=== PATIENT | male | born 1950 | race Caucasian/White ===

== ENCOUNTER 2024-10-24 08:29 | Emergency (ER) | payer MEDICARE, SELFPAY ==
[2024-10-24 08:33] VITALS: BMI 24.9
--- NOTE | 2024-10-24 08:33 | CT_ITS ---
EXAM: CT Head Without Intravenous Contrast CLINICAL INDICATION: NEURO DEFICIT, ACUTE, STROKE SUSPECTED TECHNIQUE: Axial computed tomography images of the head/brain without intravenous contrast. This CT exam was performed using one or more of the following dose reduction techniques: automated exposure control, adjustment of the mA and/or kV according to patient size, and/or use of iterative reconstruction technique. COMPARISON: No relevant prior studies available. FINDINGS: BRAIN AND EXTRA-AXIAL SPACES: Subtle hypodense lesion of the left basal ganglia could represent infarction of indeterminate age or prominent perivascular space. Further evaluation with MRI is recommended. The cerebral and cerebellar sulci are prominent consistent with brain atrophy. Areas of decreased attenuation in the deep cerebral white matter are consistent with small vessel ischemic/degenerative changes. No acute intracranial hemorrhage, midline shift or mass effect. If symptoms persist, further evaluation with MRI is recommended. BONES/JOINTS: Unremarkable. No acute fracture. SOFT TISSUES: Unremarkable. SINUSES: Unremarkable as visualized. No acute sinusitis. MASTOID AIR CELLS: Unremarkable as visualized. No mastoid effusion. CT/STROKE Brain/Head without Cont IMPRESSION: 1. Subtle hypodense lesion of the left basal ganglia could represent infarctio n of indeterminate age or prominent perivascular space. Further evaluation with MRI is recommended. 2. Generalized brain atrophy. 3. Small vessel ischemic/degenerative changes. 4. No acute intracranial hemorrhage, midline shift or mass effect. If symptoms persist, further evaluation with MRI is recommended. Reading Location: [facility]
--- NOTE | 2024-10-24 08:33 | CT_ITS ---
PROCEDURE: STROKE CTA HEAD AND NECK W/CON 10/24/2024 REASON FOR EXAM: NEURO DEFICIT, ACUTE, STROKE SUSPECTED TECHNIQUE: STROKE CTA HEAD AND NECK W/CON Multiplanar Sagittal and Coronal images were obtained. CONTRAST: Not reported One or more dose reduction techniques were used (e.g., Automated exposure control, adjustment of the mA and/or kV according to patient size, use of iterative reconstruction technique). RADIATION DOSE SUMMARY: DLP: 802 mGycm COMPARISON: None FINDINGS: Aortic Arch: Patent Brachiocephalic and Subclavians: Patent RIGHT Carotid: Right CCA: Patent, heavily calcified plaque is noted. Right ICA: Patent Maximum stenosis (NASCET): 0 % Right ECA: Patent LEFT Carotid: Left CCA: Patent, heavily calcified plaque is noted Left ICA: Patent Maximum stenosis (NASCET): 0 % Left ECA: Patent Vertebrals: Patent RIGHT Vertebral: Patent LEFT Vertebral: Patent, dominant Anatomy: Calcified plaque is noted Aneurysm or avm: None Anterior cerebral arteries: Patent Middle cerebral arteries: Patent Basilar artery: Patent Posterior cerebral arteries: Patent Other major branches of the posterior circulation: Patent Major venous structures: Patent Other findings: Neck: Unremarkable lungs: There is a 1.1 x 1.1 cm enlarged right paratracheal node, image 35/601. Emphysema is noted at the apices with scar bones: There is no acute bony abnormality. CT/STROKE CTA Head AND Neck W/Con IMPRESSION: There is a 1.1 x 1.1 cm enlarged right paratracheal node, image 35/601. Emphyse ma is noted at the apices with scar. Chest CT correlation is recommended No significant stenosis or occlusion is identified in the carotid system in the neck or head. [facility]
--- NOTE | 2024-10-24 08:33 | ED.VIS.STROK ---
HPI History of Present Illness Chief Complaint: Stroke Alert Detail of Chief Complaint: According to squad patient was flaccid on the left side his speech was much Informant: patient and EMS Onset/Context/Timing Onset: Today (08) Context: Onset with activity and Sudden Onset Timing: Continuous Quality and Location: Positive for Left Facial Droop, Left Arm Weakness, Left Leg Weakness, Slurred Speech and Difficulty with Ambulation Current Severity: Mild Maximum Severity: Severe Worsened by: Probable stroke Relieved by: Not applicable Associated Symptoms Associated Symptoms: Negative for Headache, Nausea or Vomiting Narrative Narrative: Patient is a 74-year-old male with history of atrial fibrillation on Eliquis. saw him fall. He had a flaccid left side significantly slurred speech and facial droop. He denies headache. Denies visual disturbance. He denies cardiac or respiratory symptoms. He denies nausea or vomiting. There are no records available for review. Prior similar symptoms: No Recent Illness/Hospitalization: No [facility] Medical History (Updated 10/24/24 @ 09:[address] Juan Quintanilla MD) Atrial fibrillation Social History (Updated 10/24/24 @ 08:[address] Juan Quintanilla MD) household members: spouse housing: house Smoking Status: Former smoker ROS ROS ED Eyes Eyes: Denies blurry vision or change in vision Cardiovascular Cardiovascular: Denies chest pain or palpitations Respiratory/Chest Respiratory/Chest: Denies cough, dyspnea or dyspnea on exertion Gastrointestinal Gastrointestinal: Denies abdominal pain, nausea or vomiting Integumentary Denies rash Neurologic Neurologic: Reports weakness; Denies headache(s) or paresthesias Hematologic/Lymphatic Hematologic/Lymphatic: Denies easy bleeding or easy bruising EXAM Physical Exam Const Vital Signs: 10/24/24 08:32 10/24/24 08:46 10/24/24 09:01 Temperature 97.7 F L Temperature Source Oral Pulse Rate 96 81 Respiratory Rate 25 H 19 H Blood Pressure 164/89 H 166/127 H Blood Pressure Mean 114 140 Pulse Ox 93 97 Oxygen Delivery Method Room Air Room Air Room Air 10/24/24 09:02 Temperature Temperature Source Pulse Rate 79 Respiratory Rate 19 H Blood Pressure 166/127 H Blood Pressure Mean 140 Pulse Ox 97 Oxygen Delivery Method Room Air Positive well nourished and well developed General Appearance ED: well developed and NAD HEENT Reports moist mucous membranes atraumatic Eyes PERRL and EOMs intact bilaterally General Eye ED: Negative for pale conjunctiva or scleral icterus Neck no lymphadenopathy, supple and no JVD Resp normal respiratory effort and clear to auscultation bilaterally Cardio no murmurs Rate: regular rate Rhythm: abnormal rhythm irregularly irregular GI normal to inspection, nondistended, normoactive bowel sounds, soft to palpation and non-tender Back/Spine no CVA tenderness Extremity normal to inspection General Extremety ED: Negative for deformity or edema General Extremity: Negative for deformity or edema Neuro oriented x3 and No CN's II-XII intact bilaterally Osmar Coma Scale: document GCS findings Spontaneous Obeys Commands Oriented 15 Sensorium / Orientation: Negative for alert Speech: Negative for speech normal Psych mental status grossly normal Skin no wounds General Skin Exam: Negative for jaundice Lesions: no lesions Rashes: no rashes MDM MDM MDM Narrative Medical decision making narrative: Patient presents with strokelike symptoms. Need to evaluate for LVO. He is not a candidate for TNKase since he is on anticoagulant. CT minus was obtained as well as CTA of the head and neck. Monitor from paramedics reveals atrial fibrillation. Stroke team was called. Lab Data Labs: Laboratory Results - last 24 hr 10/24/24 09:03 POC Glucose 101 Radiography Diagnostic Testing: Clinical Impression(s) from Imaging Studies Brain CT 10/24/24 08:33 IMPRESSION: 1. Subtle hypodense lesion of the left basal ganglia could represent infarction of indeterminate age or prominent perivascular space. Further evaluation with MRI is recommended. 2. Generalized brain atrophy. 3. Small vessel ischemic/degenerative changes. 4. No acute intracranial hemorrhage, midline shift or mass effect. If symptoms persist, further evaluation with MRI is recommended. Reading Location: [facility] CT report that was documented 0839 was reviewed at 0841. Spoke with Dr. Carl as the neurologist at [facility]. Patient has an M2 clot on the right. Presently there is flow. Since patient symptoms have improved markedly recommend stat ground transport to [facility] in the event he deteriorates for emergent retrieval. Patient and were made aware of this. He is in agreement. Bariatric Program Coordinator has been asked to make arrangements for stat ground transport to [facility]. Dr. Dominique agrees patient not a candidate for TNKase since he is on Eliquis and took his last dose at 7 AM. Rhythm Strip Rhythm Strip: A-fib Rate: 95 Ectopy: None EKG Initial EKG: Attestation: I personally reviewed and interpreted this EKG as follows: Interpretation: Atrial Fibrillation (Atrial fibrillation 93. There is evidence of right bundle branch block. WI interval is not applicable. QRS duration 130 ms. QT duration 4 and 28 ms. [place] is normal.) Management Discussion w/another healthcare provider: [employer] Technology Manager and Radiologist Treatment and Re-Evaluation Narrative: Patient's blood pressure is elevated. Will allow for permissive hypertension since she is a stroke patient. Discharge Plan Triage Chief Complaint: Stroke Alert ED Provider: Juan Quintanilla Dx/Rx/DC Orders Clinical Impression: Cerebrovascular accident (CVA) involving right cerebral hemisphere, Anticoagulant long-term use, Chronic a-fib Primary Care Provider: Elisa Simon Referrals: Elisa Simon MD [Primary Care Provider] - Print Language: Lao Disposition Disposition: Acute Care Hospital Discharge Location: [facility] NIHSS NIHSS 1a. Level of Consciousness: 1 - Not alert; Arousable by minor stimuli to obey, answer & respond 1b. LOC Questions: 0 - Answers BOTH questions correctly 1c. LOC Commands: 0 - Performs BOTH tasks correctly 2. Best Gaze: 0 - Normal 3. Visual: 0 - No visual loss 4. Facial Palsy: 1 - Minor paralysis (flattened nasolabial fold, asymmetry on smiling) 5a. Left Arm: 0 - No drift; arm holds 90 (or 45) degrees for full 10 seconds 5b. Right Arm: 0 - No drift; arm holds 90 (or 45) degrees for full 10 seconds 6a. Left Le - No drift; leg holds 30-degree position for full 5 seconds 6b. Right Le - No drift; leg holds 30-degree position for full 5 seconds 7. Limb Ataxia: 0 - Absent 8. Sensory: 0 - Normal; no sensory loss 9. Best Language: 0 - No aphasia; normal 10. Dysarthria: 1 = [id number] dysarthria; 11. Extinction and Inattention: 0 - No abnormality Total: 3 Stroke Questions Stroke Team Activated: Yes Reviewed Inclusion/Exclusion criteria: Yes IV Thrombolytic Administered: No (Patient is on Eliquis)
[2024-10-24 08:46] VITALS: BP 164/89; PULSE 96; RESP 25; TEMP 36.5; O2SAT 93; BMI 24.2
[2024-10-24 09:01] VITALS: BP 166/127; PULSE 81; RESP 19; O2SAT 97
[2024-10-24 09:02] VITALS: BP 166/127; PULSE 79; RESP 19; O2SAT 97
[2024-10-24 09:25] VITALS: BP 179/97; PULSE 82; RESP 18; O2SAT 95
[2024-10-24 09:26] VITALS: BP 179/97; PULSE 79; RESP 18; TEMP 36.9; O2SAT 99
[2024-10-24 09:30] LABS: Hematocrit 42.4 % (40-54); Hemoglobin 14.5 g/dL (13.0-16.5); Immature Granulocytes Count 0.070 X10^3/uL (0.0-0.0); Mean Corp Hgb Conc 34.2 g/dL (32-36); Mean Corpuscular Volume 92.4 fL (80-94); Mean Platelet Vol. 9.3 fl (6.2-12.0); NRBC Flagged by Analyzer 0 % (0-5); Platelet Count 287 K/mm3 (150-450); RBC Distribution Width CV 12.8 % (11.6-14.6); RBC Distribution Width SD 43.4 fl (35.1-43.9); Red Blood Count 4.59 M/mm3 (4.6-6.2); White Blood Count 9.7 K/mm3 (4.4-11.0)
[2024-10-24 09:38] LABS: Prothrombin Time (Protime)PT. 17.0 SECONDS (11.7-14.9)
[2024-10-24 09:39] LABS: Partial Thromboplast Time 30.4 Seconds (24.1-36.2)
[2024-10-24 10:23] LABS: Anion Gap 11 (5-15); BUN 20 mg/dL (4-19); BUN/Creat Ratio 18.8 RATIO (10-20); Calcium,Total 9.7 mg/dL (7.6-11.0); Carbon Dioxide 23.5 mmol/L (21.0-32.0); Chloride 99 mmol/L (98-108); Estimated Creatinine Clearance 76.01 ml/min (50-250); Glucose 105 mg/dL (70-99); Potassium 4.5 mmol/L (3.3-5.1); Troponin T High Sensitivity 17 ng/L (<=22)
== END 2024-10-24 09:46 | disposition short-term general hospital (02) ==
PROVIDERS: Emergency Provider Emergency Medicine; PCP Internal Medicine; Visit Provider Emergency Medicine
DX: I63.311 Cerebral infarction due to thrombosis of right middle cerebral artery (principal); G81.04 Flaccid hemiplegia affecting left nondominant side; I48.20 Chronic atrial fibrillation, unspecified; R29.703 NIHSS score 3; R47.81 Slurred speech; R29.810 Facial weakness; R26.2 Difficulty in walking, not elsewhere classified; Z79.01 Long term (current) use of anticoagulants; Z87.891 Personal history of nicotine dependence
CPT/HCPCS: 70450; 70496; 70498; 80048; 82962; 84484; 85025; 85610; 85730; 93005; 99285; Q9967; A4216